=== PATIENT | female | born 1985 | race Caucasian/White ===

== ENCOUNTER 2018-05-03 15:50 | Emergency (ER) | payer OTHER ==
[~2018-05-03] VITALS: Ht 160 cm; Wt 117.5 kg
[2018-05-03] MEDS ORDERED: WELLBUTRIN SR150 MG PO (16:04)
[2018-05-03] MEDS ORDERED: ZOLOFT50 MG PO (16:04)
[2018-05-03] MEDS ORDERED: LATUDA40 MG PO (16:05)
[2018-05-03] MEDS ORDERED: TOPAMAX50 MG PO (16:05)
[2018-05-03 16:25] VITALS: BP 111/84
== END 2018-05-03 16:25 | disposition home or self-care (01) ==
LOC: M.ERS 15:50
DX: G56.22 Lesion of ulnar nerve, left upper limb (principal); F32.9 Major depressive disorder, single episode, unspecified; F41.9 Anxiety disorder, unspecified; Z88.0 Allergy status to penicillin

== ENCOUNTER 2018-11-06 15:37 | Emergency (ER) | payer OTHER ==
[~2018-11-06] VITALS: Ht 160 cm; Wt 124.3 kg
[~2018-11-06 15:37] MED LIST: LATUDA40 MG PO; TOPAMAX50 MG PO; WELLBUTRIN SR150 MG PO; ZOLOFT50 MG PO
[2018-11-06] MEDS ORDERED: ZPAK PO (15:55)
[2018-11-06] MEDS ORDERED: NORCO 5-325 TA1 EAC1 PO (15:55)
[2018-11-06] MEDS ORDERED: PREDNISONE 20 M20 M1 PO (15:55)
[2018-11-06] MEDS ORDERED: FLEXERIL PO (15:55)
[2018-11-06 15:58] VITALS: BP 153/94
== END 2018-11-06 15:58 | disposition home or self-care (01) ==
LOC: M.ERS 15:37
DX: J32.9 Chronic sinusitis, unspecified (principal); M54.9 Dorsalgia, unspecified; F41.9 Anxiety disorder, unspecified; E03.9 Hypothyroidism, unspecified; E11.9 Type 2 diabetes mellitus without complications; F31.9 Bipolar disorder, unspecified; E78.5 Hyperlipidemia, unspecified; Z88.0 Allergy status to penicillin

== ENCOUNTER 2018-11-08 16:40 | Emergency (ER) | payer OTHER ==
[~2018-11-08] VITALS: Ht 162.6 cm; Wt 78.9 kg
[~2018-11-08 16:40] MED LIST changes: +FLEXERIL PO; +NORCO 5-325 TA1 EAC1 PO; +PREDNISONE 20 M20 M1 PO; +ZPAK PO
[2018-11-08 17:00] VITALS: BP 144/88
== END 2018-11-08 17:12 | disposition home or self-care (01) ==
LOC: M.ERS 16:40
DX: S30.0XXA Contusion of lower back and pelvis, initial encounter (principal); F31.9 Bipolar disorder, unspecified; E03.9 Hypothyroidism, unspecified; E11.9 Type 2 diabetes mellitus without complications; E78.5 Hyperlipidemia, unspecified; F41.9 Anxiety disorder, unspecified; Z88.0 Allergy status to penicillin; X58.XXXA Exposure to other specified factors, initial encounter; Y93.89 Activity, other specified; Y92.89 Other specified places as the place of occurrence of the external cause; Y99.8 Other external cause status

== ENCOUNTER 2019-02-03 19:05 | Emergency (ER) | payer MEDICAID ==
[~2019-02-03] VITALS: Ht 157.5 cm; Wt 122.5 kg
[2019-02-03 19:33] LABS: HEMOGLOBIN 14.5 gm/dL (12.0-15.0); MPV 7.7 fl. (7.2-11.1); RDW-CV 13.3 % (10.5-14.5); WBC 12.4 thou/uL (4.0-11.0)
[2019-02-03] MEDS ORDERED: ZOFRAN ODT4 MG SUBLING (19:34)
[2019-02-03 19:35] LABS: HEMATOCRIT 42.4 % (37.0-47.0); MCHC 34.1 g/dL (28.0-37.0); NUCLEATED RBCS 0 /100WBC; PLATELET COUNT* 390 thou/uL (150-400); RBC 5.17 mil/uL (4.20-5.00)
[2019-02-03 19:42] LABS: CREATININE 1.1 mg/dL (0.6-1.3); POTASSIUM 4.4 mmol/L (3.5-5.1)
[2019-02-03 19:47] LABS: ALBUMIN 4.3 g/dL (3.4-5.0); TOTAL BILIRUBIN 0.9 mg/dL (<0.1-1.0); TOTAL PROTEIN 8.7 g/dL (6.4-8.2)
[2019-02-03 19:59] LABS: ABSOLUTE BASOPHILS 0.1 thou/uL (0.0-0.2); ABSOLUTE LYMPHOCYTES 0.6 thou/uL (0.8-5.3); ABSOLUTE MONOCYTES 0.2 thou/uL (0.0-1.2); ABSOLUTE NEUTROPHILS 11.4 thou/uL (1.6-8.1); PLATELET ESTIMATE ADEQUATE
[2019-02-03 20:15] VITALS: BP 150/92
== END 2019-02-03 20:16 | disposition home or self-care (01) ==
LOC: M.ERS 19:05
PROVIDERS: Family Medicine
DX: R11.2 Nausea with vomiting, unspecified (principal); R19.7 Diarrhea, unspecified; M54.2 Cervicalgia; R51 Headache; F32.9 Major depressive disorder, single episode, unspecified; F41.9 Anxiety disorder, unspecified; E11.9 Type 2 diabetes mellitus without complications; E78.5 Hyperlipidemia, unspecified; E03.9 Hypothyroidism, unspecified